=== PATIENT | female | born 1950 | race Caucasian/White ===

== ENCOUNTER 2022-02-18 | Emergency (ER) | payer OTHER ==
[~2022-02-18] VITALS: Ht 167.6 cm; Wt 68.0 kg
[2022-02-18 00:16] VITALS: BP_SYST 138
--- NOTE | 2022-02-18 00:33 | NUR ---
PATIENT PRESENT TO ER C/O FB ON RIGHT EAR. PATIENT REPORTS THAT SHE IS HAVING A HEARING AID TIP STUCK IN EAR. DENIES ANY PAIN
--- NOTE | 2022-02-18 00:33 | NUR ---
Patient to [facility] for evaluation. Side rails up.
--- NOTE | 2022-02-18 00:55 | NUR ---
ER at bedside examining patient.
[2022-02-18 01:03] VITALS: BP_SYST 122
--- NOTE | 2022-02-18 01:03 | NUR ---
Patient given written and verbal discharge instructions and verbalizes understanding. ER MD discussed with patient the results and treatment provided. Patient in stable condition. ID arm band removed. NO RX GIVEN. Patient educated on pain management and to follow up with PMD. Pain Scale 0/10 Opportunity for questions provided and answered.
== END 2022-02-18 01:03 | disposition home or self-care (01) ==
LOC: SED
DX: T16.1XXA Foreign body in right ear, initial encounter (principal); Z88.0 Allergy status to penicillin; Z88.2 Allergy status to sulfonamides; Z88.5 Allergy status to narcotic agent; W45.8XXA Other foreign body or object entering through skin, initial encounter; Y93.89 Activity, other specified; Y92.89 Other specified places as the place of occurrence of the external cause; Y99.8 Other external cause status
CPT/HCPCS: 99281; 99284